=== PATIENT | male | born 1970 | race Caucasian/White ===

== ENCOUNTER 2016-05-25 11:24 | Inpatient (IN) ==
[2016-05-25] MEDS ORDERED: DIPH,PERTUSS(ACELL),TET VAC/PF 0.5 ML SYRINGE IM ONE (12:33)
--- NOTE | 2016-05-25 13:24 | Emergency Department Note ---
Wound/Laceration HPI - General Chief Complaint: Wound/Laceration Stated Complaint: Right middle finger swelling and reddness. Time Seen by Provider: 05/25/16 12:16 Source: patient Mode of arrival: ambulatory Limitations: no limitations - History of Present Illness HPI Narrative: States about a week ago he was working on an alternator and it was spinning and running and his finger hit it, causing an abrasion to right middle finger over the PIP, dorsal surface. Woman who is with him states she has been trying to get him to come in all week but it is getting worse it's more swollen and now is extremely limited range of motion to the affected finger. States it doesn't hurt and is fairly numb feeling except if he bumps it on anything or slightly touches it the wrong way states pain is severe and sends him through the roof. Denies fever or chills. States swelling to started going up into his hand and it has been red and hot to touch last 48 hours. No home treatments. He thinks his last tetanus was 7 years ago but he is unsure. States he last ate at [employer] about 5 minutes before coming into the room here. States he has not eaten otherwise since last night. Patient is right handed - Related Data Home Medications Medication Instructions Recorded Confirmed No Known Home Meds [No Known Home 05/25/16 05/25/16 Meds] Allergies Allergy/AdvReac Type Severity Reaction Status Date / Time No Known Drug Allergies Allergy Unverified 01/15/16 01:30 Review of Systems All systems ED: reviewed and negative except as stated. Past Medical History - Past Medical History Medical history: Reports: no medical history Surgical history ED: Reports: no surgical history - Social History smoking status: Unknown if ever smoked Alcohol use: Reports: Unknown (Denies but does smell of alcohol) Drug use: Reports: unknown Physical Exam - General Limitations: no limitations General appearance: alert, in no apparent distress - Head Head exam: atraumatic, normocephalic, normal inspection - Eye Eye exam: Present: normal appearance. Absent: conjunctival injection - ENT ENT exam: mucous membranes moist - Chest Chest inspection: Present: normal inspection, symmetric chest wall rise - Respiratory Respiratory exam: Present: normal lung sounds bilaterally. Absent: respiratory distress, wheezes, accessory muscle use - Cardiovascular Cardiovascular exam: Present: regular rate, normal heart sounds - Extremities Exam Extremities exam: Present: normal capillary refill, joint swelling (Right middle finger with diffuse severe edema throughout and extremely tender to touch. Warm and hot to touch. No drainage. Swelling extends from the middle finger about 1.5 inches up into the hand which is also reddened and swollen. Greatly decreased range of motion to the right third PIP joint) - Neurological Exam Neurological exam: Present: alert, oriented X3, normal gait - Psychiatric Psychiatric exam: Present: normal affect, normal mood - Skin Skin exam: Present: warm, dry, intact, erythema (Please see extremity exam) Course Vital Signs Temperature 98.3 F 05/25/16 11:25 Pulse Rate 78 05/25/16 11:25 Respiratory Rate 18 05/25/16 11:25 Pulse Oximetry (%) 99 05/25/16 11:25 Temperature 98.3 F 05/25/16 11:25 Pulse Rate 91 H 05/25/16 13:05 Respiratory Rate 18 05/25/16 13:05 Blood Pressure 160/109 05/25/16 13:05 Pulse Oximetry (%) 98 05/25/16 13:05 Wound/Laceration - [facility] Narrative Medical decision making narrative: Dr. Limon the orthopedic surgeon specializing in hands was called. Dr. Limon will be in to see the patient will assume care. Disposition Clinical Impression: Septic joint of right hand Disposition: Home, Self-Care Condition: Fair Referrals: Xiomy Boateng ARNP [Primary Care Provider] - Time of Disposition: 13:27
[2016-05-25 13:55] LABS: Basophils # (Auto) 0 K/mcL (0.0-0.3); Basophils % (Auto) 0.6 % (0.0-2.0); Eosinophils # (Auto) 0.1 K/mcL (0.0-0.7); Eosinophils % (Auto) 2.3 % (0.0-7.0); Granulocytes % (Auto) 52.3 % (38.0-78.0); Lymphocytes # (Auto) 1.9 K/mcL (1.5-4.8); Lymphocytes % (Auto) 36.1 % (15.5-49.0); Mean Cell Volume 99.5 fL (80.0-100.0); Mean Corpuscular HGB Conc 32.7 g/dL (31.0-36.0); Mean Corpuscular Hemoglobin 32.6 pg (26.0-34.0); Monocytes # (Auto) 0.5 K/mcL (0.1-0.9); Monocytes % (Auto) 8.7 % (1.0-9.0); Platelet Count 216 K/mcL (140-440); Red Cell Distribution Width 14.2 % (11.5-14.5)
[2016-05-25 14:04] LABS: Appearance,Urine CLEAR; Bacteria,Urine 0 /hpf (0); Bilirubin,Urine NEG (NEG); Color,Urine YELLOW; Glucose,Urine (UA) NEGATIVE (NEG); Leukocyte Esterase,Urine NEG /uL (NEG); Mucus,Urine FEW /hpf (0); Nitrate,Urine NEG (NEG); Protein,Urine 30 mg/dL (NEG); Specific Gravity,Urine 1.021 (1.000-1.035); Sperm,Urine PRESENT /hpf (ABSENT); Urine Blood NEG mg/dL (<0.03); Urine RBC 1 /hpf (0-1); Urine Squamous Epithelial Cell < 1 /hpf (0-4); Urine WBC 1 /hpf (0-4); Urobilinogen,Urine NEG (NEG)
[2016-05-25 14:16] LABS: ALT/SGPT 90 U/l (0-40); Albumin 4.6 gm/dL (3.2-5.2); Albumin/Globulin Ratio 1.4 (1.0-2.3); Alkaline Phosphatase 94 U/L (39-117); Blood Urea Nitrogen 7 mg/dl (6-20)
--- NOTE | 2016-05-25 14:48 | XRay Report ---
HISTORY: Reason for Exam:pain, edema, dec rom, laceration last week FINDINGS: There is a great deal of soft tissue swelling over the PIP joint of the third finger. There is no fracture or evidence of bone injury. Mild arthritis is present at the PIP joint with small marginal spurs. There is no foreign body or gas in the soft tissues and there is no cortical erosion. IMPRESSION: Soft tissue injury but no evidence of bone injury Interpreted and Authenticated by: Reinaldo Duff 05/25/16
[2016-05-25] MEDS ORDERED: FAMOTIDINE/PF 20 MG/2 ML VIAL IV ONE (14:55)
[2016-05-25] MEDS ORDERED: METOCLOPRAMIDE 10 MG/2 ML VIAL IV ONE (14:56)
--- NOTE | 2016-05-25 15:26 | Consultation ---
DATE OF CONSULTATION: 05/25/2016 CHIEF COMPLAINT: Right middle finger pain, swelling, redness, loss of motion and function. HISTORY: The patient is a 46-year-old right hand dominant male who about a week ago sustained a laceration over the back of his right middle finger and middle joint. Initially it was not too problematic, but then over the last week ago it has become more painful and problematic with increasing swelling, redness, loss of motion and function, and is now with increasing pain and redness in the back of the hand up into the forearm. This is now becoming painful and problematic. He is also noticing a low grade fever. Right now the pain rates about 3/5 sitting quietly. Any attempted motion of that middle finger on the right increases the pain to 4-5/5. He denies any previous trauma to the finger in the most recent or distant past other than the laceration a week ago. He has no chills, but is having some fevers with increasing pain at the present time. He denies any problems with the thumb, index, ring or small fingers, but now with pain in the dorsum of the forearm. He denies any left upper extremity problems. PAST MEDICAL HISTORY: Significant for tobacco use. PAST SURGICAL HISTORY: The patient is status post debridement and irrigation of his right index finger many years ago with an associated revision amputation. ALLERGIES: The patient has no known drug allergies. MEDICATIONS: None. SOCIAL HISTORY: Presently the patient does use tobacco and alcohol. 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 REVIEW OF SYSTEMS: Presently, the patient denies any headaches, vision changes, nausea or vomiting. He does have some fevers, but no chills. No abnormal bruising or bleeding. No blood in the urine or blood in the stool. No chest pain, shortness of breath or wheezing. PHYSICAL EXAM: VITAL SIGNS: Pulse of 84 that is regular, respiratory rate 97, respiration 18, blood pressure 156/98, and a temperature of 98.2 degrees. HEENT: Normocephalic, atraumatic. Pupils are equal, round and reactive to light. Extraocular movements are intact. Oropharynx is clear with moist mucous membranes. NECK: Supple without any anterior or posterior cervical adenopathy. No submandibular or submental adenopathy. He demonstrates no tenderness over the paraspinous or midline. He has full range of motion at the thyroid to the midline. HEART: Regular rate and rhythm without murmurs, rubs, or gallops. LUNGS: Clear to auscultation. ABDOMEN: Soft, positive bowel sounds. No hepatosplenomegaly noted. No masses noted. Nontender to palpation. SKIN: His bilateral upper extremities, except for his right middle finger, demonstrate no evidence of skin breakdown, macerations, lacerations, ulcers, or lesions. No abnormal bruising or ecchymotic regions. He demonstrates a middle finger on the right with a 1 cm laceration transversely over the proximal interphalangeal joint with some crusting. No purulence is noted. There is some erythema and induration noted. There is also some erythema and induration extending to the dorsum of the hand with some lymphangitis extending to the dorsum of the forearm. EXTREMITIES: His right upper extremity demonstrates a shoulder and elbow without any deformities. He did demonstrate some mild tenderness in the axilla, but no adenopathy noted. He does demonstrate some tenderness over the epitrochlear region of the elbow, but elbow flexion was from 0 to 145 degrees. He has no instability with varus or valgus stressing at 0 or 30 degrees of flexion. He has a negative Tinel's at the cubital tunnel. He has a forearm with full pronation and supination. He has some tenderness over the dorsum of the wrist with some lymphangitis with wrist flexion to 75 degrees and extension to 70 degrees. He has ulnar deviation to 35 degrees and radial deviation to 25 degrees. He is not able to make a full composite fist with a middle finger with erythema, induration and edema. Also some erythema and some induration over the dorsum of the hand. He has some significant tenderness over the proximal interphalangeal joint with active flexion and extension of the metacarpophalangeal joint, the proximal interphalangeal joint, and distal interphalangeal joint, but he is able to bring the fingertip to the palm. He has full motion of the thumb, index, ring and small fingers. He has a left upper extremity that shows hands without any deformities and nontender to palpation, full range of motion and neurovascularly distally. GAIT: Demonstrates a good heel to toe progression. No antalgic components noted. NEUROLOGIC: Cranial nerves II-XII are grossly intact with sensation intact to light touch in all four extremities. PLAIN RADIOGRAPHS: AP, lateral, and oblique views of the right middle finger interpreted by myself demonstrate no evidence of acute fractures, dislocations or bony lesions. There are no erosions noted. He has significant increasing edema in the soft tissue envelope, but with an intact soft tissue envelope. LABS: white cell count 5.3, a hemoglobin of 15.0 and a platelet count of 216,000. ASSESSMENT: The patient is about a week status post laceration over the dorsum of his right middle finger now with evidence of a dorsal abscess with a suppurative extensor tenosynovitis and a possible septic proximal interphalangeal joint, becoming more symptomatic and problematic and now with associated edema and some lymphangitis extending more proximally. RECOMMENDATIONS: 1. Due to the fact the patient now demonstrates his right middle finger with a dorsal abscess, suppurative extensor tenosynovitis, and possible septic interphalangeal joint with now extension more proximally, I would recommend operative intervention in an emergent fashion. 2. The patient will be scheduled for a debridement and irrigation of the right middle finger dorsal abscess and debridement and irrigation of the right middle finger suppurative extensor tenosynovitis and debridement and irrigation of the right middle finger septic proximal interphalangeal joint. 3. The patient was counseled on the risks and benefits of surgery to include, but not limited to infection, bleeding, nerve or vessel damage, pain, numbness, tingling, loss of function, loss of motion, stiffness, scarring, adhesions, contractures, loss of motion, loss of function, persistent infection, reoperation, and potential for amputation. The patient and family verbalized that they understood the proposed procedure with the associated risks and benefits and consented. 4. The patient will be admitted for at least overnight observation for IV antibiotics versus a possible inpatient admission for 72 hours of IV antibiotics. FRANCOISE:leigha Job ID: [id number] Doc ID: [id number] Don GRAY
[2016-05-25] MEDS ORDERED: PROPOFOL 200 MG/20 ML VIAL IV ONE (15:33)
[2016-05-25] MEDS ORDERED: LIDOCAINE HCL/PF 100 MG/5 ML SYRINGE IV ONE (15:33)
[2016-05-25] MEDS ORDERED: fentaNYL 100 MCG/2 ML VIAL IV ONE (15:33)
[2016-05-25] MEDS ORDERED: ONDANSETRON 4 MG/2 ML VIAL ONE (15:33)
[2016-05-25] MEDS ORDERED: SUCCINYLCHOLINE 20 MG/ML ML IV ONE (15:33)
[2016-05-25] MEDS ORDERED: MIDAZOLAM 5 MG/5 ML VIAL ONE (15:33)
[2016-05-25] MEDS ORDERED: HYDROmorphone 2 MG/ML SYRINGE IV PRN ×3 (16:03→18:00)
[2016-05-25] MEDS ORDERED: diphenhydrAMINE 50 MG/ML VIAL IV PRN (16:03)
[2016-05-25] MEDS ORDERED: IPRATROPIUM/ALBUTEROL 3 ML AMPUL.NEB NEB PRN (16:03)
[2016-05-25] MEDS ORDERED: NALOXONE HCL 0.4 MG/ML VIAL IV PRN ×2 (16:03→18:00)
[2016-05-25] MEDS ORDERED: BENZOCAINE/MENTHOL 1 LOZENGE PO PRN ×3 (16:03→18:00)
[2016-05-25] MEDS ORDERED: LACTATED RINGERS 250 ML IV PRN (16:03)
[2016-05-25] MEDS ORDERED: fentaNYL 100 MCG/2 ML VIAL IV PRN (16:03)
[2016-05-25] MEDS ORDERED: MEPERIDINE 25 MG/ML SYRINGE IV PRN (16:03)
[2016-05-25] MEDS ORDERED: FLUMAZENIL 0.1 MG/ML ML IV PRN (16:03)
[2016-05-25] MEDS ORDERED: LACTATED RINGERS 1,000 ML IV SCH (16:15)
[2016-05-25] MEDS ORDERED: HYDROCODONE/APAP 7.5/325MG TABLET PO PRN ×2 (16:39→18:00)
[2016-05-25] MEDS ORDERED: ONDANSETRON ODT 4 MG TABLET SL PRN ×2 (16:39→18:00)
--- NOTE | 2016-05-25 16:51 | Brief Operative Note ---
Date of procedure: 05/25/16 Pre-op diagnosis: R MF dorsal abcess, suppurative extensor tenosynovitis, septic PIP joint Post-op diagnosis: same Procedure: 1. Debridement and irrigation of right middle finger dorsal abcess 2. Debridement and irrigation of right middle finger suppurative extensor tendon sheath 3. Debridement and irrigation of right middle finger septic PIP joint Grafts/Implants: No Anesthesia: GETA Findings: See above Complications: none Surgeon: Don Limon Stitch Burnisher: Lulu Day Estimated blood loss (cc): 5 Tourniquet Time (Minutes): 32 Specimens Removed/Pathology: other (Aerobic/Anaerobic cultures of right middle finger extensor tendon and PIP joint) Condition: stable Disposition: PACU
--- NOTE | 2016-05-25 17:11 | Internal Med History&Physical ---
Medical - H&P: HPI Patient information: Note initiated : 05/25/16 at 5:07 pm Service Date, if different from initiated Date: [] Patient: Eliazar Plasencia 46 y/o M admitted on 05/25/16 for Right middle finger swelling and reddness.. History of present illness: Mr. Plasencia is a 46 year old male presented to the emergency room complaining of progressive worsening of swelling and pain of his right middle finger, dorsal surface. He apparently had been working on a car about one week ago and the alternator belts caused an abrasion. he was diagnosed with possible septic arthritis, and Dr. Lang of orthopedics saw him in the emergency room, and subsequently took him to the emergency room for open debridement. he is now being admitted for IV antibiotics regarding septic joint. His last tetanus shot was reported as approximately 7 years ago, so Tdap vaccine was given in the emergency room.. the patient also reports low-grade temperature. Pain is reported as 5 out of 5 with movement. He did report some pain in the dorsum of the forearm. he is now postop, and says he is feeling pretty well. He notes that other than his finger which started really bothering him several days ago he has not been feeling poorly. He denies fever or chills, but does note that it felt like his hand was swollen enough that he was having trouble using it. He does note that he's been having some stomach issues lately, and had been referred to see a doctor this week about some abdominal discomfort and nausea and just generalized soreness of the abdomen whenever he pushed on things are otherwise uses abdominal muscles.He admits that he drinks fairly heavily, and says that hecan drink quite a few beers or up to a fifth of whiskey per day. He has been drinking almost daily since he stopped using methamphetamines and cocaine about 15 years ago. He has been drinking quite a bit more heavily over the last several months, according to he and his girlfriend. He doesn't feel that he ever show signs of withdrawal but knows that sometimes his family worries about him, and has been thinking aboutcutting down. Otherwise, he deniesheadaches or dizziness, Or ear symptoms, sore throat or cough, swollen glands,chest pain or palpitations , shortness of breath or wheezing, vomiting or diarrhea or bright blood per rectum He says he will have occasional urinary frequency. He says his primary care doctor has johnny Dr. Sue, but it is not clear how often he sees her. Past medical history: Reported history of both heavy alcohol use. GERD previous amputation of his right index finger many years ago. current smoker, of one to 2 cigarettes per day having cut down about 1 year ago. allergies: No known drug allergies. Medications: None Social history: The patient admits to both tobacco and alcohol use, as above.. 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 he previously used methamphetamines and cocaine, but has been clean from those since 1990. Family history:he believes his mother has fibromyalgia, lupus, and a bad heart. His father is alive and well. His siblings and children are alive and well. Medical - H&P: Meds Home Medications Medication Instructions Recorded Confirmed Type No Known Home Meds [No Known Home 05/25/16 05/25/16 History Meds] Allergies Allergy/AdvReac Type Severity Reaction Status Date / Time No Known Drug Allergies Allergy Verified 05/25/16 17:25 Medical - H&P: Exam - Constitutional Vitals: Temp Pulse Resp BP Pulse Ox 98.5 F 98 H 18 152/102 94 05/25/16 17:00 05/25/16 17:00 05/25/16 17:00 05/25/16 17:00 05/25/16 17:00 Temperature in the emergency room was noted at 99.7. Exam: on exam, he is well-developed well-nourished man, in no acute distress. Head: Normocephalic, atraumatic. Ears: TMs and canals are clear. eyes: PERRLA, EOMI, anicteric. Pharynx:He has only fair condition, with multiple teeth missing. Pharynx is otherwise clear, and mucosa appears normal. Neck: Is supple, without obvious lymphadenopathy, JVD, thyromegaly, bruits. Cardiac exam: Shows regular rate and rhythm, with normal S1 and S2, without murmurs, rubs, gallops. lungs: Clear to auscultation, without rales, rhonchi, wheezes. abdomen: Is soft, without obvious tenderness or masses. Bowel sounds are active. There is no guarding or rebound. Extremities: His right forearm and hand are heavily bandaged as he is postop. Otherwise extremities show no cyanosis, clubbing, edema. Neurologic exam: Is grossly nonfocal. He is somewhat diaphoretic, but is not tremulous at this time. He is alert and oriented, and mood and affect appear normal. skin exam: He has numerous tiny scabs noted over both shins. Cause of this is not certain,but a steroid ointment might help get rid of the itching, which might given an opportunity to heal. He will also be on antibiotics while he is here. Medical - H&P: Reslt - Labs CBC & Chem 7: 05/25/16 13:21 05/25/16 13:21 Labs: CBC differential is normal. Sedimentation rate is elevated at 33 Liver function tests are elevated with AST of 1:15, and ALT of 90 with normal alkaline phosphatase.C-reactive protein is elevated at 3.4 Urinalysis shows 30 mg of protein, but is otherwise normal. x-ray shows a great deal soft tissue swelling over the PIP joint of the right third finger, without evidence of fracture or bone injury. There is also mild arthritis with small spurs noted. No foreign body was noted. EKG shows normal sinus rhythm at a rate of about 90, with normal axis and no obvious ischemia. Medical - H&P: A/P (1) Alcohol abuse Current visit: Yes Status: Acute (2) Tobacco abuse Current visit: Yes Status: Acute (3) Rash and nonspecific skin eruption Current visit: Yes Status: Acute (4) Septic joint of right hand Current visit: Yes Status: Acute (5) Dyspepsia Current visit: No Status: Acute #1. Infectious disease/orthopedics. - the patient is status post I&D he right middle finger abscess and suppurative extensor tenosynovitis with septic PIP joint. He will need IV antibiotics for at least [address] Lang has requested that medicine manage his antibiotics although he will continue to follow along. Intraoperative cultures are pending. In the meantime he will be covered with vancomycin and Rocephin. -i expect he will need at least 4 weeks total of antibiotics. -Blood cultures are also pending -Tdap vaccine was updated #2. history of heavy alcohol use. The patient is at high risk for withdrawal, and has been placed on the CIWA protocol. #3. History of tobacco abuse. This is fairly minimal, and should not require treatment. -he should avoid smoking altogether, but at least while healing his wound. #4.CODE STATUS: Full code. #5. DVT prophylaxis: Subcutaneous heparin. #6. Elevated blood pressure. He does not believe that he has a history of this .This may be related to the current stressful situation or due to alcohol withdrawal. We will continue to monitor this. #8. Abdominal discomfort, and likely GERD with or without gastritis due to chronic alcohol use. Cover with oral Pepcid. #9. He does have numerous tiny scabs noted over both shins, which he and his girlfriend report is due to chronic itching. We can try a topical steroid for now, that he should follow this up with his primary care physician. this visit took approximately 65 minutes, to review the patient's records and test results, interview and examine him, and write orders.
[2016-05-25] MEDS ORDERED: HYDROmorphone 2 MG/ML SYRINGE ONE (17:19)
[2016-05-25] MEDS ORDERED: VANCOMYCIN PER PHARMACY IV ONE (18:00)
[2016-05-25] MEDS ORDERED: cloNIDine HCL 0.1 MG TABLET PO PRN (18:00)
[2016-05-25] MEDS ORDERED: LORazepam 2 MG/ML VIAL IV PRN (18:00)
[2016-05-25] MEDS ORDERED: DOCUSATE SODIUM 100 MG CAPSULE PO PRN (18:00)
[2016-05-25] MEDS ORDERED: MAGNESIUM HYDROXIDE 30 ML ORAL.SUSP PO PRN (18:00)
[2016-05-25] MEDS ORDERED: ACETAMINOPHEN 325 MG TABLET PO PRN (18:00)
[2016-05-25] MEDS: HYDROcodone/APAP 5/325MG TABLET PO PRN ×2 (18:28→22:02)
[2016-05-25] MEDS ORDERED: cefTRIAXone 1 GM VIAL ONE (18:52)
[2016-05-25] MEDS ORDERED: VANCOMYCIN 500 MG VIAL ONE (18:53)
[2016-05-25] MEDS: cefTRIAXone 1 GM in DEXTROSE 5% IN WATER 50 ML IV SCH (19:27)
[2016-05-25] MEDS: VANCOMYCIN 1,500 MG in 0.9 % SODIUM CHLORIDE 500 ML IV SCH (19:28)
[2016-05-25] MEDS ORDERED: 0.9 % SODIUM CHLORIDE 10 ML SYRINGE IV SCH ×3 (22:00)
[2016-05-25] MEDS: HEPARIN 5,000 UNIT/ML VIAL SQ SCH (22:02)
[2016-05-25] MEDS: FAMOTIDINE 20 MG TABLET PO SCH (22:02)
[2016-05-25] MEDS: 0.9 % SODIUM CHLORIDE 10 ML SYRINGE IV SCH (22:03)
[2016-05-25] MEDS: TRIAMCINOLONE CREAM 0.1% 15G 1 DOSE TUBE TOPICAL SCH (23:08)
[2016-05-26] MEDS: HYDROcodone/APAP 5/325MG TABLET PO PRN ×4 (02:15→22:16)
[2016-05-26 06:05] LABS: Basophils # (Auto) 0 K/mcL (0.0-0.3); Basophils % (Auto) 0 % (0.0-2.0); Eosinophils # (Auto) 0 K/mcL (0.0-0.7); Eosinophils % (Auto) 0 % (0.0-7.0); Granulocytes % (Auto) 80.1 % (38.0-78.0); Lymphocytes # (Auto) 0.6 K/mcL (1.5-4.8); Lymphocytes % (Auto) 16.3 % (15.5-49.0); Mean Cell Volume 100.8 fL (80.0-100.0); Mean Corpuscular HGB Conc 32.8 g/dL (31.0-36.0); Mean Corpuscular Hemoglobin 33.1 pg (26.0-34.0); Monocytes # (Auto) 0.1 K/mcL (0.1-0.9); Monocytes % (Auto) 3.6 % (1.0-9.0); Platelet Count 194 K/mcL (140-440); RBC 4.29 M/mcL (4.50-5.90)
[2016-05-26 06:41] LABS: ALT/SGPT 66 U/l (0-40); Albumin 3.9 gm/dL (3.2-5.2); Albumin/Globulin Ratio 1.4 (1.0-2.3); Alkaline Phosphatase 72 U/L (39-117); Bilirubin,Direct < 0.2 mg/dL (0.0-0.3); Blood Urea Nitrogen 10 mg/dl (6-20); C-Reactive Protein 2.5 mg/dl (0.0-0.8); Gamma Glutamyl Transpeptidase 355 U/L (8-61); Magnesium 1.5 mg/dL (1.6-2.5); Phosphorous 2.9 mg/dL (2.7-4.5); Uric Acid 5.8 mg/dL (2.5-8.0)
[2016-05-26] MEDS: 0.9 % SODIUM CHLORIDE 10 ML SYRINGE IV SCH ×6 (08:30→22:31)
[2016-05-26] MEDS: cefTRIAXone 1 GM in DEXTROSE 5% IN WATER 50 ML IV SCH (08:35)
--- NOTE | 2016-05-26 08:36 | Operative Note ---
DATE OF OPERATION: 05/25/2016 PREOPERATIVE DIAGNOSES: 1. Right middle finger dorsal abscess. 2. Right middle finger suppurative extensor tenosynovitis. 3. Right middle finger septic proximal interphalangeal joint. POSTOPERATIVE DIAGNOSES: 1. Right middle finger dorsal abscess. 2. Right middle finger suppurative extensor tenosynovitis. 3. Right middle finger septic proximal interphalangeal joint. PROCEDURE: 1. Debridement and irrigation of the right middle finger dorsal abscess. 2. Debridement and irrigation of the right middle finger extensor tendon sheath. 3. Debridement and irrigation of the right middle finger proximal interphalangeal joint. SURGEON: Don Limon MD. CERTIFIED NURSE MIDWIFE: Lulu Day RN ANESTHESIA: General anesthesia with endotracheal tube. ESTIMATED BLOOD LOSS: 5 mL. DRAINS: Included 1/4-inch [place] drain placed deep to the extensor tendon sheath. COMPLICATIONS: None. FINAL SPONGE COUNT: Correct. SPECIMENS: Aerobic and anaerobic cultures of the right middle finger extensor tendon sheath and the proximal interphalangeal joint. TOTAL TOURNIQUET TIME: 32 minutes. INDICATION: The patient is a 46-year-old, [id number], white male who approximately a week ago sustained a laceration while working on transmission over the back of his right middle finger with subsequent development of pain, swelling, redness with loss of motion and function. His physical examination demonstrates about a 1 cm transverse laceration on the dorsal aspect of the right middle finger proximal interphalangeal joint with associated erythema, induration, limited range of motion with extension of edema and erythema into the dorsum of the hand with lymphangitis of the dorsum of the forearm. The plain radiographs do not demonstrate any evidence of fractures, dislocations or bony lesions. The patient and family verbalized that they understood the proposed procedure with the associated risks and benefits and consented. PROCEDURE: The patient was taken to the operating room suite and placed supine on the operating room table. General anesthesia was attained with endotracheal tube after adequate anesthesia was verified. The tourniquet was then placed on the proximal aspect of his right arm and the right upper extremity was then sterilely prepped and draped in the usual fashion. The middle finger was identified. The eschar was removed off the laceration with gross purulence down deep with evidence of extension into the proximal interphalangeal joint, at which time the dorsal right middle finger was marked extending the incision proximally and distally in a Z fashion. After this demonstrated to be in good position, the right upper extremity was exsanguinated and the tourniquet was inflated to 280 mmHg. The previously marked incision was then made sharply in a Z fashion extending proximally and distally over the middle phalanx and the proximal phalanx. Sharp dissection was taken down through the skin into the subcutaneous tissues. The subcutaneous tissues were bluntly divided. Full-thickness flaps were developed in a radial and ulnar direction exposing the entire extensor mechanism with significant purulence extending into the dorsum of the hand. Next, the proximal interphalangeal was identified. There was seen to be a laceration through the extensor mechanism with detachment of the central slip with purulence and granulation tissue within the proximal interphalangeal joint. The extensor tendon was incised in line with the incision exposing the entire proximal interphalangeal joint. With the use of blunt and sharp dissection, all necrotic and/or foreign material was removed. Cultures were taken at the extensor tendon sheath with aerobic and anaerobic cultures and in the proximal interphalangeal with aerobic and anaerobic cultures sent for pathologic evaluation. Next, after necrotic and foreign material was removed as well as purulence, copious irrigation was taken through the wound and the proximal interphalangeal joint with a liter of sterile saline solution. A repeat debridement was taken through the extensor tendon sheath, the dorsal abscess and the proximal interphalangeal joint. Loculations were then broken up to the dorsum of the hand and the dorsum of the middle phalanx to the level of the distal interphalangeal joint. Next, copious irrigation was taken to the dorsum of the hand and to the distal interphalangeal joint with another liter of sterile saline solution, repeat debridement, again a final liter of sterile saline solution placed through the extensor tendon mechanism and into the proximal interphalangeal joint. After this was completed, there was seen to be complete removal of all necrotic and/or foreign material within the extensor tendon sheath, dorsum of the hand and the proximal interphalangeal joint. After this was completed, the wound edges were then trimmed back about 1.5 mm and the skin was then closed with 4-0 nylon interrupted sutures with a Irasema drain placed deep to the extensor tendon. The tourniquet was released. The finger was seen to pink up very nicely with good drainage at the drain site. A bulky hand dressing was applied. A volar splint was applied with the wrist in slight extension and the metacarpals in a flexed posture. The patient was awakened and transferred to the [facility] and to the recovery room in stable condition. The patient tolerated the procedure well. Estimated blood loss was 5 mL Drains included 1/4-inch [place] drain placed deep to the extensor mechanism. Complications were none. Final sponge count was correct. Specimens included aerobic and anaerobic cultures at the level of the extensor tendon and the proximal interphalangeal joint. There was a total tourniquet time of 32 minutes. FRANCOISE:owen Job ID: [id number] Doc ID: [id number] Don Limon MD
[2016-05-26] MEDS: THIAMINE 100 MG TABLET PO SCH (08:40)
[2016-05-26] MEDS: MULTIVIT,THER IRON,CA,FA & MIN 1 TABLET PO SCH (08:40)
[2016-05-26] MEDS: HEPARIN 5,000 UNIT/ML VIAL SQ SCH ×2 (08:40→22:16)
[2016-05-26] MEDS: FAMOTIDINE 20 MG TABLET PO SCH ×2 (08:41→22:16)
[2016-05-26] MEDS: TRIAMCINOLONE CREAM 0.1% 15G 1 DOSE TUBE TOPICAL SCH ×2 (08:41→22:20)
[2016-05-26] MEDS: FOLIC ACID 1 MG TABLET PO SCH (08:45)
[2016-05-26] MEDS: VANCOMYCIN 1,500 MG in 0.9 % SODIUM CHLORIDE 500 ML IV SCH ×2 (09:34→22:15)
[2016-05-26] MEDS ORDERED: LORazepam 2 MG/ML VIAL IV ONE (10:02)
--- NOTE | 2016-05-26 13:30 | Internal Med Progress Note ---
Medical - PN: Subj Patient information: Note initiated : 05/26/16 at 1:30 pm Service Date, if different from initiated Date: [] Patient: Eliazar Plasencia 46 y/o M admitted on 05/25/16 for Rt Middle Finger Swelling, Reddness/Septic Joint. Chief Complaint: [] Interval history: May 25, 2016:History of present illness: Mr. Plasencia is a 46 year old male presented to the emergency room complaining of progressive worsening of swelling and pain of his right middle finger, dorsal surface. He apparently had been working on a car about one week ago and the alternator belts caused an abrasion. he was diagnosed with possible septic arthritis, and Dr. Lang of orthopedics saw him in the emergency room, and subsequently took him to the emergency room for open debridement. he is now being admitted for IV antibiotics regarding septic joint. His last tetanus shot was reported as approximately 7 years ago, so Tdap vaccine was given in the emergency room.. May 26, 2016: Today, the patient says he is feeling pretty well. He did have some agitation last night, but this was settled down nicely by Ativan. Otherwise, he states he's having a little bit more discomfort in his right hand today, but really not much. He denies any tremors or other signs of alcohol withdrawal today. He is not having fever or chills, chest pain or shortness of breath, abdominal pain, nausea or vomiting.he says the triamcinolone cream does seem to be helping with the itching of his shins at night. - Constitutional Vitals: Vital Signs Temp Pulse Resp BP Pulse Ox 97.7 F 73 16 148/98 95 05/26/16 06:44 05/26/16 06:44 05/26/16 06:44 05/26/16 06:44 05/26/16 07:00 Period Temp Pulse Resp BP Sys/[place] Pulse Ox Last 24 Hr 97.7 F-98.5 F 72-98 14-18 139-169/87-105 90-96 Intake and Output 05/25/16 05/26/16 05/26/16 21:59 05:59 13:59 Intake Total 1800 / 1800 500 / 500 290 / 290 Output Total 455 / 455 150 / 150 Balance 1345 / 1345 500 / 500 140 / 140 Weight 212 lb Intake & Output: Intake & Output 05/25/16 05/26/16 05/26/16 21:59 05:59 13:59 Intake Total 1800 / 1800 500 / 500 290 / 290 Output Total 455 / 455 150 / 150 Balance 1345 / 1345 500 / 500 140 / 140 Weight 212 lb Intake: IV 50 / 50 Dextrose 5% in Water 50 50 / 50 ml @ 100 mls/hr IV Q24H KULWINDER with Rocephin 1 gm Rx #:[id number] Oral 600 / 600 500 / 500 240 / 240 GI Tube Flush 1200 / 1200 Output: Void Amount 450 / 450 150 / 150 Estimated Blood Loss 5 / 5 Other: Meal Dinner Breakfast Percent of Meal Consumed 100% 75% Feeding Ability Independent Independent # Voids 2 1 Exam: he is in no acute distress. Neck is supple without obvious lymphadenopathy. Cardiac exam shows regular rate and rhythm. Lungs are clear to auscultation. abdomen is soft and nontender. extremities: Right arm is bandaged There is no sign of discharge. Lower extremity show no edema. He continues to have tiny scabs over his shins, and notes that he often wakes himself up during the night having scratched his shins. Medical - PN: Obj Da - Labs CBC & Chem 7: 05/26/16 04:30 05/26/16 04:30 Labs: Abnormal Lab Results 05/26/16 05/26/16 04:30 04:30 WBC 3.8 L RBC 4.29 L MCV 100.8 H Gran % 80.1 H Lymph # 0.6 L Glucose 191 H Calcium 8.5 L Magnesium 1.5 L GGT 355 H AST 66 H ALT 66 H C-Reactive Protein 2.5 H wound cultures from May 25 are growing staph aureus, with sensitivities pending. Meds: Medications Acetaminophen (Tylenol) 650 mg PO Q6HP PRN PRN Reason: PAIN/FEVER > 101 Last Admin: 05/26/16 06:45 Dose: 650 mg Acetaminophen/Hydrocodone Bitart ([place] 5/325mg) 1 tab PO Q4HP PRN PRN Reason: Pain Last Admin: 05/26/16 10:17 Dose: 1 tab Clonidine HCl (Catapres) 0.1 mg PO Q4HP PRN PRN Reason: Alcohol Withdrawal Docusate Sodium (Colace) 100 mg PO BID PRN PRN Reason: Constipation Famotidine (Pepcid) 20 mg PO BID [facility] Last Admin: 05/26/16 08:41 Dose: 20 mg Folic Acid (Folic Acid) 1 mg PO DAILY [facility] Last Admin: 05/26/16 08:45 Dose: 1 mg Heparin Sodium (Porcine) (Heparin) 5,000 unit SQ Q12 [facility] Last Admin: 05/26/16 08:40 Dose: 5,000 unit Heparin Sodium (Porcine) (Heparin Flush) 2 ml IV Q12 [facility] Hydromorphone HCl (Dilaudid) 0 mg IV Q2HP PRN PRN Reason: Pain Ceftriaxone Sodium 1 gm/ (Dextrose) 50 mls @ 100 mls/hr IV Q24H [facility] Last Infusion: 05/26/16 09:33 Dose: Infused Vancomycin HCl 1,500 mg/ (Sodium Chloride) 500 mls @ 333.3 mls/hr IV Q12H [facility] Last Admin: 05/26/16 09:34 Dose: 250 mls/hr Iron Carb/Multivit/Tax Attorney/Folic Acid (Multivitamin W/Minerals) 1 tab PO DAILY [facility] Last Admin: 05/26/16 08:40 Dose: 1 tab Lorazepam (Ativan) 1 mg IV Q4HP PRN; Protocol PRN Reason: Alcohol Withdrawal Magnesium Hydroxide (Milk Of Magnesia) 30 ml PO DAILYP PRN PRN Reason: Constipation Naloxone HCl (Narcan) 0.1 mg IV Q2MIN PRN PRN Reason: Opiate Reversal Ondansetron HCl (Zofran) 4 mg SL Q4HP PRN PRN Reason: Nausea And Vomiting Sodium Chloride (Saline Flush) 10 ml IV Q8 [facility] Last Admin: 05/26/16 09:36 Dose: 10 ml Sodium Chloride (Saline Flush) 10 ml IV Q8 [facility] Thiamine HCl (Vitamin B1) 100 mg PO QDAY [facility] Last Admin: 05/26/16 08:40 Dose: 100 mg Throat Lozenges (Cepacol) 1 lozenge PO PRN PRN PRN Reason: Sore Throat Triamcinolone Acetonide (Kenalog Cream 0.1%) 1 dose TOPICAL BID [facility] Last Admin: 05/26/16 08:41 Dose: 1 dose Medical - PN: A/P - Time Spent With Patient Total time spent is greater than 50% in coordination of care (as documented) at patient's floor/unit and/or counseling patient: (1) Alcohol abuse Status: Acute Current Visit: Yes (2) Tobacco abuse Status: Acute Current Visit: Yes (3) Rash and nonspecific skin eruption Status: Acute Current Visit: Yes (4) Septic joint of right hand Problem details: A: S/P I&D right septic middle finger PIP joint and extensor tendon, doing well P: 1. Continue IV antibiotics as per Hospitalist 2. Up as tolerated 3. Dressing change and drain D/C 05/28/15 Status: Acute Current Visit: Yes (5) Dyspepsia Status: Acute Current Visit: No - Narrative A/P Narrative: #1. Infectious disease/orthopedics. - the patient is status post I&D he right middle finger abscess and suppurative extensor tenosynovitis with septic PIP joint. He will need IV antibiotics for at least [address] Lang has requested that medicine manage his antibiotics although he will continue to follow along. -sensitivities on the staph aureus that is growing are still pending. In the meantime he will be covered with vancomycin and Rocephin. -i expect he will need at least 4 weeks total of antibiotics. -Blood cultures are also pending -Tdap vaccine was updated #2. history of heavy alcohol use. The patient is at high risk for withdrawal, and has been placed on the CIWA protocol. e has required a couple of doses of lorazepam, but otherwise appears to be doing well. #3. History of tobacco abuse. This is fairly minimal, and should not require treatment. -he should avoid smoking altogether, but at least while healing his wound. #4.CODE STATUS: Full code. #5. DVT prophylaxis: Subcutaneous heparin. #6. Elevated blood pressure. He does not believe that he has a history of this .This may be related to the current stressful situation or due to alcohol withdrawal. We will continue to monitor this. #8.gI. - Abdominal discomfort, and likely GERD with or without gastritis due to chronic alcohol use. Cover with oral Pepcid. -LFTs were also elevated on admission, likely due to alcoholic hepatitis These seem to be improving today. #9. He does have numerous tiny scabs noted over both shins, which he and his girlfriend report is due to chronic itching. We can try a topical steroid for now, that he should follow this up with his primary care physician. #10. Hematologic. -MCV is elevated, likely due to the effect of alcohol on his bone marrow. continue with supplementation of B vitamins. #11. Endocrine. -Glucose is elevated today. Continue to monitor. approximately 30 minutes was spent today, reviewing patient's chest results, interviewing and examining him, and writing orders. Medical - PN: Qual - VTE Deep Vein Thrombosis/Pulmonary Embolism Present on Admission: No
--- NOTE | 2016-05-26 17:47 | Orthopedic Progress Note ---
Subjective Patient information: Note initiated : 05/26/16 at 5:45 pm Service Date, if different from initiated Date: [] Patient: Eliazar Plasencia 46 y/o M admitted on 05/25/16 for Rt Middle Finger Swelling, Reddness/Septic Joint. Chief Complaint: [] Principal diagnosis: Septic right middle finger Interval history: Patient doing well, no fevers or chills, taking po well. Good pain control Objective Vital signs: Vital Signs Temp Pulse Resp BP Pulse Ox 05/26/16 16:00 98.2 F 98 H 163/86 92 05/26/16 12:00 97.7 F 75 16 142/87 95 05/26/16 07:00 95 05/26/16 06:44 97.7 F 73 16 148/98 95 05/26/16 04:00 98.3 F 72 16 150/93 96 05/25/16 23:30 98.3 F 88 14 139/90 95 05/25/16 19:50 98.4 F 88 14 154/87 94 05/25/16 18:45 91 H 151/90 93 05/25/16 18:15 92 H 160/99 90 Intake and Output 05/26/16 05/26/16 05/26/16 05:59 13:59 21:59 Intake Total 500 / 500 1250 / 1250 Output Total 150 / 150 Balance 500 / 500 1100 / 1100 Intake: IV 550 / 550 Sodium Chloride 0.9% 500 500 / 500 ml @ 333.3 mls/hr IV Q12H KULWINDER with Vancomycin 1, 500 mg Rx#:[id number] Dextrose 5% in Water 50 50 / 50 ml @ 100 mls/hr IV Q24H KULWINDER with Rocephin 1 gm Rx #:[id number] Oral 500 / 500 700 / 700 Output: Void Amount 150 / 150 Other: Meal Lunch Percent of Meal Consumed 100% Feeding Ability Independent # Voids 2 1 Intake & Output: Intake & Output 05/26/16 05/26/16 05/26/16 05:59 13:59 21:59 Intake Total 500 / 500 1250 / 1250 Output Total 150 / 150 Balance 500 / 500 1100 / 1100 Intake: IV 550 / 550 Sodium Chloride 0.9% 500 500 / 500 ml @ 333.3 mls/hr IV Q12H KULWINDER with Vancomycin 1, 500 mg Rx#:[id number] Dextrose 5% in Water 50 50 / 50 ml @ 100 mls/hr IV Q24H KULWINDER with Rocephin 1 gm Rx #:[id number] Oral 500 / 500 700 / 700 Output: Void Amount 150 / 150 Other: Meal Lunch Percent of Meal Consumed 100% Feeding Ability Independent # Voids 2 1 Dressing: Yes clean, Yes dry, Yes intact, Yes splint in place Weight bearing status: full Neurological exam IM: Yes alert, Yes oriented X3, Yes neurovascular intact Extremities exam IM: Yes neurovascular intact - Labs CBC & BMP: 05/26/16 04:30 05/26/16 04:30 Labs: 05/26/16 04:30 Hgb 14.2 Hct 43.3 Assessment and Plan (1) Septic joint of right hand Status: Acute Priority: High Comment: A: S/P I&D right septic middle finger PIP joint and extensor tendon, doing well P: 1. Continue IV antibiotics as per Hospitalist 2. Up as tolerated 3. Dressing change and drain D/C 05/28/15 Qualifiers: Septic arthritis organism: staphylococcal Qualified Code(s): M00.041 - Staphylococcal arthritis, right hand
[2016-05-27 05:26] LABS: Basophils # (Auto) 0 K/mcL (0.0-0.3); Basophils % (Auto) 0.4 % (0.0-2.0); Eosinophils # (Auto) 0 K/mcL (0.0-0.7); Eosinophils % (Auto) 0.2 % (0.0-7.0); Granulocytes % (Auto) 67.5 % (38.0-78.0); Lymphocytes # (Auto) 1.7 K/mcL (1.5-4.8); Lymphocytes % (Auto) 25.9 % (15.5-49.0); Mean Cell Volume 100.6 fL (80.0-100.0); Mean Corpuscular HGB Conc 32.7 g/dL (31.0-36.0); Mean Corpuscular Hemoglobin 32.9 pg (26.0-34.0); Monocytes # (Auto) 0.4 K/mcL (0.1-0.9); Platelet Count 193 K/mcL (140-440); RBC 4.07 M/mcL (4.50-5.90); Red Cell Distribution Width 14.3 % (11.5-14.5)
[2016-05-27 05:44] LABS: ALT/SGPT 51 U/l (0-40); Albumin/Globulin Ratio 1.5 (1.0-2.3); Alkaline Phosphatase 64 U/L (39-117); Bilirubin,Direct < 0.2 mg/dL (0.0-0.3); Blood Urea Nitrogen 13 mg/dl (6-20); C-Reactive Protein 1.2 mg/dl (0.0-0.8); Gamma Glutamyl Transpeptidase 310 U/L (8-61); Magnesium 1.8 mg/dL (1.6-2.5); Phosphorous 2.6 mg/dL (2.7-4.5); Uric Acid 5.1 mg/dL (2.5-8.0)
[2016-05-27] MEDS: HYDROcodone/APAP 5/325MG TABLET PO PRN ×2 (06:17→19:03)
[2016-05-27] MEDS: 0.9 % SODIUM CHLORIDE 10 ML SYRINGE IV SCH ×6 (06:18→21:36)
[2016-05-27] MEDS: cefTRIAXone 1 GM in DEXTROSE 5% IN WATER 50 ML IV SCH (08:44)
[2016-05-27] MEDS: THIAMINE 100 MG TABLET PO SCH (09:01)
[2016-05-27] MEDS: FAMOTIDINE 20 MG TABLET PO SCH ×2 (09:01→21:35)
[2016-05-27] MEDS: MULTIVIT,THER IRON,CA,FA & MIN 1 TABLET PO SCH (09:01)
[2016-05-27] MEDS: FOLIC ACID 1 MG TABLET PO SCH (09:01)
[2016-05-27] MEDS: HEPARIN 5,000 UNIT/ML VIAL SQ SCH ×2 (09:01→21:36)
[2016-05-27] MEDS: VANCOMYCIN 1,500 MG in 0.9 % SODIUM CHLORIDE 500 ML IV SCH ×2 (10:16→21:35)
[2016-05-27] MEDS: TRIAMCINOLONE CREAM 0.1% 15G 1 DOSE TUBE TOPICAL SCH ×2 (11:50→21:35)
--- NOTE | 2016-05-27 12:00 | Internal Med Progress Note ---
Medical - PN: Subj Patient information: Note initiated : 05/27/16 at 12:00 pm Service Date, if different from initiated Date: [] Patient: Eliazar Plasencia 46 y/o M admitted on 05/25/16 for Rt Middle Finger Swelling, Reddness/Septic Joint. Chief Complaint: [] Interval history: May 25, 2016:History of present illness: Mr. Plasencia is a 46 year old male presented to the emergency room complaining of progressive worsening of swelling and pain of his right middle finger, dorsal surface. He apparently had been working on a car about one week ago and the alternator belts caused an abrasion. he was diagnosed with possible septic arthritis, and Dr. Lang of orthopedics saw him in the emergency room, and subsequently took him to the emergency room for open debridement. he is now being admitted for IV antibiotics regarding septic joint. His last tetanus shot was reported as approximately 7 years ago, so Tdap vaccine was given in the emergency room.. May 26, 2016: Today, the patient says he is feeling pretty well. He did have some agitation last night, but this was settled down nicely by Ativan. Otherwise, he states he's having a little bit more discomfort in his right hand today, but really not much. He denies any tremors or other signs of alcohol withdrawal today. He is not having fever or chills, chest pain or shortness of breath, abdominal pain, nausea or vomiting.he says the triamcinolone cream does seem to be helping with the itching of his shins at night. May 27, 2016: the patient has no particular complaints today, other than that he is feeling somewhat sleepy. He still uses Ativan occasionally for increases in anxiety but has otherwise not had significant withdrawal symptoms. He denies fever or chills, or excessive pain in his right hand. He denies chest pain or shortness of breath GI or symptoms. - Constitutional Vitals: Vital Signs Temp Pulse Resp BP Pulse Ox 98.8 F 76 18 137/88 93 05/27/16 07:44 05/27/16 07:44 05/27/16 07:44 05/27/16 07:44 05/27/16 07:44 Period Temp Pulse Resp BP Sys/[place] Pulse Ox Last 24 Hr 97.5 F-98.8 F 76-98 18-18 137-175/86-95 92-97 Intake and Output 05/26/16 05/27/16 05/27/16 21:59 05:59 13:59 Intake Total 240 / 240 850 / 850 Balance 240 / 240 850 / 850 Weight 212 lb Intake & Output: Intake & Output 05/26/16 05/27/16 05/27/16 21:59 05:59 13:59 Intake Total 240 / 240 850 / 850 Balance 240 / 240 850 / 850 Weight 212 lb Intake: IV 500 / 500 Sodium Chloride 0.9% 500 500 / 500 ml @ 333.3 mls/hr IV Q12H KULWINDER with Vancomycin 1, 500 mg Rx#:[id number] Oral 240 / 240 350 / 350 Other: Meal Dinner Percent of Meal Consumed 100% # Voids 2 Exam: he is awake and alert, and in no acute distress. Cardiac exam shows regular rate and rhythm. Lungs are clear to auscultation. Abdomen is soft and nontender. extremities:Right hand and forearm are bandaged. Fingers show good vascular refill. Lower extremities show no edema. The rash on his terrell seems to be improving. Medical - PN: Obj Da - Labs CBC & Chem 7: 05/27/16 03:59 05/27/16 03:59 Labs: Abnormal Lab Results 05/27/16 05/27/16 05/26/16 03:59 03:59 04:30 WBC RBC 4.07 L Hgb 13.4 L Hct 40.9 L MCV 100.6 H Gran % Lymph # Glucose 191 H Calcium 8.5 L Phosphorus 2.6 L Magnesium 1.5 L GGT 310 H 355 H AST 44 H 66 H ALT 51 H 66 H C-Reactive Protein 1.2 H 2.5 H Triglycerides 169 H 05/26/16 04:30 WBC 3.8 L RBC 4.29 L Hgb Hct MCV 100.8 H Gran % 80.1 H Lymph # 0.6 L Glucose Calcium Phosphorus Magnesium GGT AST ALT C-Reactive Protein Triglycerides wound cultureis growing staph aureus and gram-positive cocci. Staph aureus is pansensitive.gram-positive cocci organism ID is still pending. Meds: Medications Acetaminophen (Tylenol) 650 mg PO Q6HP PRN PRN Reason: PAIN/FEVER > 101 Last Admin: 05/26/16 06:45 Dose: 650 mg Acetaminophen/Hydrocodone Bitart ([place] 5/325mg) 1 tab PO Q4HP PRN PRN Reason: Pain Last Admin: 05/27/16 06:17 Dose: 1 tab Clonidine HCl (Catapres) 0.1 mg PO Q4HP PRN PRN Reason: Alcohol Withdrawal Docusate Sodium (Colace) 100 mg PO BID PRN PRN Reason: Constipation Famotidine (Pepcid) 20 mg PO BID [facility] Last Admin: 05/27/16 09:01 Dose: 20 mg Folic Acid (Folic Acid) 1 mg PO DAILY [facility] Last Admin: 05/27/16 09:01 Dose: 1 mg Heparin Sodium (Porcine) (Heparin) 5,000 unit SQ Q12 [facility] Last Admin: 05/27/16 09:01 Dose: 5,000 unit Heparin Sodium (Porcine) (Heparin Flush) 2 ml IV Q12 [facility] Last Admin: 05/27/16 11:51 Dose: 2 ml Hydromorphone HCl (Dilaudid) 0 mg IV Q2HP PRN PRN Reason: Pain Ceftriaxone Sodium 1 gm/ (Dextrose) 50 mls @ 100 mls/hr IV Q24H [facility] Last Admin: 05/27/16 08:44 Dose: 100 mls/hr Vancomycin HCl 1,500 mg/ (Sodium Chloride) 500 mls @ 333.3 mls/hr IV Q12H [facility] Last Admin: 05/27/16 10:16 Dose: 333 mls/hr Iron Carb/Multivit/[place]/Folic Acid (Multivitamin W/Minerals) 1 tab PO DAILY [facility] Last Admin: 05/27/16 09:01 Dose: 1 tab Lorazepam (Ativan) 1 mg IV Q4HP PRN; Protocol PRN Reason: Alcohol Withdrawal Last Admin: 05/27/16 06:17 Dose: 1 mg Magnesium Hydroxide (Milk Of Magnesia) 30 ml PO DAILYP PRN PRN Reason: Constipation Naloxone HCl (Narcan) 0.1 mg IV Q2MIN PRN PRN Reason: Opiate Reversal Ondansetron HCl (Zofran) 4 mg SL Q4HP PRN PRN Reason: Nausea And Vomiting Sodium Chloride (Saline Flush) 10 ml IV Q8 [facility] Last Admin: 05/27/16 06:18 Dose: 10 ml Sodium Chloride (Saline Flush) 10 ml IV Q8 [facility] Last Admin: 05/27/16 06:18 Dose: 10 ml Thiamine HCl (Vitamin B1) 100 mg PO QDAY [facility] Last Admin: 05/27/16 09:01 Dose: 100 mg Throat Lozenges (Cepacol) 1 lozenge PO PRN PRN PRN Reason: Sore Throat Triamcinolone Acetonide (Kenalog Cream 0.1%) 1 dose TOPICAL BID [facility] Last Admin: 05/27/16 11:50 Dose: 1 dose Medical - PN: A/P - Time Spent With Patient Total time spent is greater than 50% in coordination of care (as documented) at patient's floor/unit and/or counseling patient: (1) Alcohol abuse Status: Acute Current Visit: Yes (2) Tobacco abuse Status: Acute Current Visit: Yes (3) Rash and nonspecific skin eruption Status: Acute Current Visit: Yes (4) Septic joint of right hand Problem details: A: S/P I&D right septic middle finger PIP joint and extensor tendon, doing well P: 1. Continue IV antibiotics as per Hospitalist 2. Up as tolerated 3. Dressing change and drain D/C 05/28/16 4. D/C planning for 05/28/16 Status: Acute Current Visit: Yes (5) Dyspepsia Status: Acute Current Visit: No - Narrative A/P Narrative: #1. Infectious disease/orthopedics. - the patient is status post I&D he right middle finger abscess and suppurative extensor tenosynovitis with septic PIP joint. He will need IV antibiotics for at least [address] Lang has requested that medicine manage his antibiotics although he will continue to follow along. -sensitivities on the staph aureus showed as a pansensitive organism. There is a second gram-positive organism with ID still pending. -continue coverage with vancomycin and Rocephin. -i expect he will need at least 4 weeks total of antibiotics. -Blood cultures are also pending -Tdap vaccine was updated #2. history of heavy alcohol use. The patient is at high risk for withdrawal, and has been placed on the CIWA protocol. e has required a couple of doses of lorazepam, but otherwise appears to be doing well. #3. History of tobacco abuse. This is fairly minimal, and should not require treatment. -he should avoid smoking altogether, but at least while healing his wound. #4.CODE STATUS: Full code. #5. DVT prophylaxis: Subcutaneous heparin. #6. Elevated blood pressure. He does not believe that he has a history of this .This may be related to the current stressful situation or due to alcohol withdrawal. We will continue to monitor this. #8.gI. - Abdominal discomfort, and likely GERD with or without gastritis due to chronic alcohol use. Cover with oral Pepcid. -LFTs were also elevated on admission, likely due to alcoholic hepatitis these are improving. #9. He does have numerous tiny scabs noted over both shins, which he and his girlfriend report is due to chronic itching.this is improving with topical steroids. #10. Hematologic. -MCV is elevated, likely due to the effect of alcohol on his bone marrow. continue with supplementation of B vitamins. #11. Endocrine. -Glucose was elevated, but is improved today. approximately 25 minutes was spent today, reviewing patient's chest results, interviewing and examining him, and writing orders. Medical - PN: Qual - VTE Deep Vein Thrombosis/Pulmonary Embolism Present on Admission: No
--- NOTE | 2016-05-27 17:47 | Orthopedic Progress Note ---
Subjective Patient information: Note initiated : 05/27/16 at 5:44 pm Service Date, if different from initiated Date: [] Patient: Eliazar Plasencia 46 y/o M admitted on 05/25/16 for Rt Middle Finger Swelling, Reddness/Septic Joint. Chief Complaint: [] Principal diagnosis: Septic right middle finger Interval history: Patient doing well, no changes. Improved pain control Objective Vital signs: Vital Signs Temp Pulse Resp BP Pulse Ox 05/27/16 16:00 98.7 F 90 18 158/102 95 05/27/16 15:35 97 05/27/16 12:00 98.8 F 75 18 135/82 93 05/27/16 07:44 98.8 F 76 18 137/88 93 05/27/16 04:36 157/91 05/27/16 04:00 98.2 F 88 18 175/95 97 05/26/16 23:41 97.9 F 83 18 156/88 96 05/26/16 20:00 97.5 F L 90 18 146/86 96 Intake and Output 05/27/16 05/27/16 05/27/16 05:59 13:59 21:59 Intake Total 850 / 850 300 / 300 Balance 850 / 850 300 / 300 Intake: IV 500 / 500 Sodium Chloride 0.9% 500 500 / 500 ml @ 333.3 mls/hr IV Q12H KULWINDER with Vancomycin 1, 500 mg Rx#:[id number] Oral 350 / 350 300 / 300 Other: Meal Breakfast Percent of Meal Consumed 100% Weight 212 lb Patient Weight 05/28/16 05:59 Weight 212 lb Intake & Output: Intake & Output 05/27/16 05/27/16 05/27/16 05:59 13:59 21:59 Intake Total 850 / 850 300 / 300 Balance 850 / 850 300 / 300 Weight 212 lb Intake: IV 500 / 500 Sodium Chloride 0.9% 500 500 / 500 ml @ 333.3 mls/hr IV Q12H KULWINDER with Vancomycin 1, 500 mg Rx#:[id number] Oral 350 / 350 300 / 300 Other: Meal Breakfast Percent of Meal Consumed 100% Dressing: Yes clean, Yes dry, Yes intact, Yes splint in place Weight bearing status: full Neurological exam IM: Yes alert, Yes oriented X3, Yes neurovascular intact Extremities exam IM: Yes neurovascular intact - Labs CBC & BMP: 05/27/16 03:59 05/27/16 03:59 Labs: 05/27/16 05/26/16 03:59 04:30 Hgb 13.4 L 14.2 Hct 40.9 L 43.3 Assessment and Plan (1) Septic joint of right hand Status: Acute Priority: High Comment: A: S/P I&D right septic middle finger PIP joint and extensor tendon, doing well P: 1. Continue IV antibiotics as per Hospitalist 2. Up as tolerated 3. Dressing change and drain D/C 05/28/16 4. D/C planning for 05/28/16 Qualifiers: Septic arthritis organism: staphylococcal Qualified Code(s): M00.041 - Staphylococcal arthritis, right hand
[2016-05-28 06:00] LABS: Basophils # (Auto) 0 K/mcL (0.0-0.3); Basophils % (Auto) 0.5 % (0.0-2.0); Eosinophils # (Auto) 0 K/mcL (0.0-0.7); Granulocytes % (Auto) 51.1 % (38.0-78.0); Lymphocytes % (Auto) 41.8 % (15.5-49.0); Mean Cell Volume 101.4 fL (80.0-100.0); Mean Corpuscular HGB Conc 32.7 g/dL (31.0-36.0); Mean Corpuscular Hemoglobin 33.2 pg (26.0-34.0); Monocytes # (Auto) 0.3 K/mcL (0.1-0.9); Monocytes % (Auto) 5.6 % (1.0-9.0); Platelet Count 202 K/mcL (140-440); RBC 4.11 M/mcL (4.50-5.90); Red Cell Distribution Width 14.6 % (11.5-14.5)
[2016-05-28 06:18] LABS: ALT/SGPT 80 U/l (0-40); Albumin 3.8 gm/dL (3.2-5.2); Albumin/Globulin Ratio 1.4 (1.0-2.3); Alkaline Phosphatase 67 U/L (39-117); Bilirubin,Direct < 0.2 mg/dL (0.0-0.3); Blood Urea Nitrogen 15 mg/dl (6-20); C-Reactive Protein 0.9 mg/dl (0.0-0.8); Gamma Glutamyl Transpeptidase 303 U/L (8-61); Phosphorous 4.2 mg/dL (2.7-4.5); Uric Acid 5.4 mg/dL (2.5-8.0)
[2016-05-28 07:03] LABS: Erythrocyte Sedimentation Rate 31 mm/hr (0-15)
[2016-05-28] MEDS: MULTIVIT,THER IRON,CA,FA & MIN 1 TABLET PO SCH (08:37)
[2016-05-28] MEDS: FOLIC ACID 1 MG TABLET PO SCH (08:37)
[2016-05-28] MEDS: HEPARIN 5,000 UNIT/ML VIAL SQ SCH (08:37)
[2016-05-28] MEDS: FAMOTIDINE 20 MG TABLET PO SCH (08:37)
[2016-05-28] MEDS: THIAMINE 100 MG TABLET PO SCH (08:37)
[2016-05-28] MEDS: cefTRIAXone 1 GM in DEXTROSE 5% IN WATER 50 ML IV SCH (08:38)
[2016-05-28] MEDS: 0.9 % SODIUM CHLORIDE 10 ML SYRINGE IV SCH ×4 (09:00→13:37)
[2016-05-28] MEDS: VANCOMYCIN 1,500 MG in 0.9 % SODIUM CHLORIDE 500 ML IV SCH (09:00)
[2016-05-28] MEDS: TRIAMCINOLONE CREAM 0.1% 15G 1 DOSE TUBE TOPICAL SCH (10:12)
[2016-05-28] MEDS: HYDROcodone/APAP 5/325MG TABLET PO PRN ×2 (13:07→18:37)
--- NOTE | 2016-05-28 18:37 | Orthopedic Progress Note ---
Subjective Patient information: Note initiated : 05/28/16 at 6:34 pm Service Date, if different from initiated Date: [] Patient: Eliazar Plasencia 46 y/o M admitted on 05/25/16 for Rt Middle Finger Swelling, Reddness/Septic Joint. Chief Complaint: [] Principal diagnosis: Septic right middle finger Interval history: No changes, good pain control, taking po well, no fevers or chills Objective Vital signs: Vital Signs Temp Pulse Resp BP BP Pulse Ox 05/28/16 16:00 98.1 F 80 18 166/99 96 05/28/16 12:00 98.5 F 84 18 139/90 97 05/28/16 07:53 97.6 F 72 18 151/92 98 05/28/16 04:00 98.3 F 82 18 149/99 97 05/28/16 00:00 98.4 F 72 16 149/96 97 05/27/16 21:30 134/72 05/27/16 20:00 98.5 F 79 16 164/94 98 Intake and Output 05/28/16 05/28/16 05/28/16 05:59 13:59 21:59 Intake Total 800 / 800 360 / 360 Output Total 300 / 300 200 / 200 Balance 500 / 500 -200 / -200 360 / 360 Intake: IV 500 / 500 Sodium Chloride 0.9% 500 500 / 500 ml @ 333.3 mls/hr IV Q12H KULWINDER with Vancomycin 1, 500 mg Rx#:[id number] Oral 300 / 300 360 / 360 Output: Urine Catheter Amount 200 / 200 Void Amount 300 / 300 Other: # Voids 2 1 Intake & Output: Intake & Output 05/28/16 05/28/16 05/28/16 05:59 13:59 21:59 Intake Total 800 / 800 360 / 360 Output Total 300 / 300 200 / 200 Balance 500 / 500 -200 / -200 360 / 360 Intake: IV 500 / 500 Sodium Chloride 0.9% 500 500 / 500 ml @ 333.3 mls/hr IV Q12H KULWINDER with Vancomycin 1, 500 mg Rx#:[id number] Oral 300 / 300 360 / 360 Output: Urine Catheter Amount 200 / 200 Void Amount 300 / 300 Other: # Voids 2 1 Incision: Yes healing, Yes clean and dry Incision clean and dry: Yes (small amount of serous drainage) Dressing: Yes clean, Yes dry, Yes intact, Yes splint in place Weight bearing status: full Neurological exam IM: Yes alert, Yes oriented X3, Yes neurovascular intact Extremities exam IM: Yes normal capillary refill, Yes neurovascular intact - Labs CBC & BMP: 05/28/16 03:30 05/28/16 03:30 Labs: 05/28/16 05/27/16 05/26/16 03:30 03:59 04:30 Hgb 13.6 13.4 L 14.2 Hct 41.7 40.9 L 43.3 Assessment and Plan (1) Septic joint of right hand Status: Acute Priority: High Comment: A: S/P I&D right septic middle finger PIP joint and extensor tendon, doing well P: 1. Dressing change today 2. D/C Drain 3. Continue IV Antibiotics as per Hospitalist 4. D/C to home when cleared by Hospitalist 5. Follow up with [facility] on 06/02/16 Qualifiers: Septic arthritis organism: staphylococcal Qualified Code(s): M00.041 - Staphylococcal arthritis, right hand
--- NOTE | 2016-05-28 19:18 | Discharge Summary ---
Medical - DS: Prov Patient information: Note initiated : 05/28/16 at 7:15 pm Service Date, if different from initiated Date: [] Patient: Eliazar Plasencia 46 y/o M admitted on 05/25/16 for Rt Middle Finger Swelling, Reddness/Septic Joint. Chief Complaint: [] Date of admission: 05/25/16 16:57 Discharge date: 05/28/16 Primary care physician: [Beckie Boateng, nurse practitioner, phone [phone]] Admitting clinician: Stella Campbell Consults: Dr. Lang, ortho Attending physician on discharge: Stella Campbell Medical - DS: Meds - Discharge Medications Prescriptions: HYDROcodone/ACETAMINOPHEN [Lortab 7.5-325 mg Tablet] 1 - 2 tablet PO Q4-6HP PRN #65 tablet PRN Reason: Pain cefTRIAXone [Rocephin] 1 gm IV Q24H #14 vial Active and Home Medications: Home Medications HYDROcodone/ACETAMINOPHEN [Lortab 7.5-325 mg Tablet] 1 - 2 tablet PO Q4-6HP PRN #65 tablet 05/28/16 [Rx Last Taken Unknown] Active Medications Acetaminophen (Tylenol) 650 mg PO Q6HP PRN PRN Reason: PAIN/FEVER > 101 Last Admin: 05/26/16 06:45 Dose: 650 mg Acetaminophen/Hydrocodone Bitart ([place] 5/325mg) 1 tab PO Q4HP PRN PRN Reason: Pain Last Admin: 05/28/16 18:37 Dose: 1 tab Clonidine HCl (Catapres) 0.1 mg PO Q4HP PRN PRN Reason: Alcohol Withdrawal Last Admin: 05/27/16 17:51 Dose: 0.1 mg Docusate Sodium (Colace) 100 mg PO BID PRN PRN Reason: Constipation Last Admin: 05/27/16 21:36 Dose: 100 mg Famotidine (Pepcid) 20 mg PO BID [facility] Last Admin: 05/28/16 08:37 Dose: 20 mg Folic Acid (Folic Acid) 1 mg PO DAILY [facility] Last Admin: 05/28/16 08:37 Dose: 1 mg Heparin Sodium (Porcine) (Heparin) 5,000 unit SQ Q12 KULWINDER Last Admin: 05/28/16 08:37 Dose: 5,000 unit Heparin Sodium (Porcine) (Heparin Flush) 2 ml IV Q12 [facility] Last Admin: 05/28/16 08:37 Dose: 2 ml Hydromorphone HCl (Dilaudid) 0 mg IV Q2HP PRN PRN Reason: Pain Ceftriaxone Sodium 1 gm/ (Dextrose) 50 mls @ 100 mls/hr IV Q24H [facility] Last Admin: 05/28/16 08:38 Dose: 100 mls/hr Vancomycin HCl 1,500 mg/ (Sodium Chloride) 500 mls @ 333.3 mls/hr IV Q12H [facility] Last Admin: 05/28/16 09:00 Dose: 333 mls/hr Iron Carb/Multivit/Corrugator Helper/Folic Acid (Multivitamin W/Minerals) 1 tab PO DAILY [facility] Last Admin: 05/28/16 08:37 Dose: 1 tab Lorazepam (Ativan) 1 mg IV Q4HP PRN; Protocol PRN Reason: Alcohol Withdrawal Last Admin: 05/27/16 06:17 Dose: 1 mg Magnesium Hydroxide (Milk Of Magnesia) 30 ml PO DAILYP PRN PRN Reason: Constipation Naloxone HCl (Narcan) 0.1 mg IV Q2MIN PRN PRN Reason: Opiate Reversal Ondansetron HCl (Zofran) 4 mg SL Q4HP PRN PRN Reason: Nausea And Vomiting Sodium Chloride (Saline Flush) 10 ml IV Q8 [facility] Last Admin: 05/28/16 13:07 Dose: 10 ml Sodium Chloride (Saline Flush) 10 ml IV Q8 [facility] Last Admin: 05/28/16 13:37 Dose: Not Given Thiamine HCl (Vitamin B1) 100 mg PO QDAY [facility] Last Admin: 05/28/16 08:37 Dose: 100 mg Throat Lozenges (Cepacol) 1 lozenge PO PRN PRN PRN Reason: Sore Throat Triamcinolone Acetonide (Kenalog Cream 0.1%) 1 dose TOPICAL BID [facility] Last Admin: 05/28/16 10:12 Dose: Not Given Medical - DS: Hosp Hospital course: Mr. Plasencia is a 46 year old male May 25, 2016:History of present illness: Mr. Plasencia is a 46 year old male presented to the emergency room complaining of progressive worsening of swelling and pain of his right middle finger, dorsal surface. He apparently had been working on a car about one week ago and the alternator belts caused an abrasion. he was diagnosed with possible septic arthritis, and Dr. Lang of orthopedics saw him in the emergency room, and subsequently took him to the emergency room for open debridement. he is now being admitted for IV antibiotics regarding septic joint. His last tetanus shot was reported as approximately 7 years ago, so Tdap vaccine was given in the emergency room.. May 26, 2016: Today, the patient says he is feeling pretty well. He did have some agitation last night, but this was settled down nicely by Ativan. Otherwise, he states he's having a little bit more discomfort in his right hand today, but really not much. He denies any tremors or other signs of alcohol withdrawal today. He is not having fever or chills, chest pain or shortness of breath, abdominal pain, nausea or vomiting.he says the triamcinolone cream does seem to be helping with the itching of his shins at night. May 27, 2016: the patient has no particular complaints today, other than that he is feeling somewhat sleepy. He still uses Ativan occasionally for increases in anxiety but has otherwise not had significant withdrawal symptoms. He denies fever or chills, or excessive pain in his right hand. He denies chest pain or shortness of breath GI or symptoms. May 28, 2016: - The patient has been doing fine. He denies any further symptoms of alcohol withdrawal, such as anxiety or tremors. He is encouraged to stop drinking alcohol altogether, as he has essentially detoxed released here. he feels that his hand is doing fine, and has only minor discomfort. -Dr. Watkins has examined his hand and changed his dressing today, and feels that he is ready for discharge. We will keep the patient on IV Rocephin for 14 days. His Intra-Op cultures grew only a pansensitive staph, which should be susceptible. the patient will follow-up with Dr. Lang in clinic in about 1 week, and after 2 weeks of IV antibiotics Dr. Lang will decide about further antibiotics. plan: #1. Infectious disease/orthopedics. - the patient is status post I&D he right middle finger abscess and suppurative extensor tenosynovitis with septic PIP joint. He will need IV antibiotics for at least 2 weeks -sensitivities on the staph aureus showed as a pansensitive organism. There is a second gram-positive organism that is read out as staph. The only sensitivities I see, is a pansensitive spectrum. -Continue 2 weeks of IV Rocephin. I think given the sensitivity of the organism , he does not need to continue with vancomycin. -Tdap vaccine was updated #2. history of heavy alcohol use. The patient is at high risk for withdrawal, and was placed on the CIWA protocol. He has required a couple of doses of lorazepam, but otherwise appears to be doing well. #3. History of tobacco abuse. This is fairly minimal, and should not require treatment. -he should avoid smoking altogether, but at least while healing his wound. #4.CODE STATUS: Full code. #5. DVT prophylaxis: Subcutaneous heparin. #6. Elevated blood pressure. He does not believe that he has a history of this .This may be related to the current stressful situation or due to alcohol withdrawal. We will continue to monitor this. this continues to run rather high, and should be followed up with his primary care physician. #8.gI. - Abdominal discomfort, and likely GERD with or without gastritis due to chronic alcohol use. Cover with oral Pepcid. -LFTs were also elevated on admission, likely due to alcoholic hepatitis these are improving. #9. He does have numerous tiny scabs noted over both shins, which he and his girlfriend report is due to chronic itching.this is improving with topical steroids. #10. Hematologic. -MCV is elevated, likely due to the effect of alcohol on his bone marrow. continue with supplementation of B vitamins. #11. Endocrine. -Glucose was elevated, but is improved today. - Time Spent with Patient Total time spent providing and/or coordinating discharge services: Greater than 30 minutes (was spent today reviewing patient's test results, interviewing and examining him, discussing plan of care with he and his girlfriend, as well as with Dr. Watkins and nursing staff.) Medical - DS: Exam - Constitutional Vitals: Vital Signs Temp Pulse Resp BP BP Pulse Ox 05/28/16 18:39 97.8 F 78 20 150/103 96 05/28/16 16:00 98.1 F 80 18 166/99 96 05/28/16 12:00 98.5 F 84 18 139/90 97 05/28/16 07:53 97.6 F 72 18 151/92 98 05/28/16 04:00 98.3 F 82 18 149/99 97 05/28/16 00:00 98.4 F 72 16 149/96 97 05/27/16 21:30 134/72 05/27/16 20:00 98.5 F 79 16 164/94 98 Intake and Output 05/28/16 05/28/16 05/28/16 05:59 13:59 21:59 Intake Total 800 / 800 360 / 360 Output Total 300 / 300 200 / 200 Balance 500 / 500 -200 / -200 360 / 360 Intake: IV 500 / 500 Sodium Chloride 0.9% 500 500 / 500 ml @ 333.3 mls/hr IV Q12H KULWINDER with Vancomycin 1, 500 mg Rx#:[id number] Oral 300 / 300 360 / 360 Output: Urine Catheter Amount 200 / 200 Void Amount 300 / 300 Other: # Voids 2 1 Weight 215 lb 4.8 oz Patient Weight 05/29/16 05:59 Weight 215 lb 4.8 oz Additional comments: he is awake and alert, and in no acute distress. Cardiac exam shows regular rate and rhythm. Lungs are clear to auscultation. Abdomen is soft and nontender. extremities:Right hand and forearm are bandaged. Fingers show good vascular refill. Lower extremities show no edema. The rash on his terrell is improving. Medical - DS: Data Labs on day of discharge: Labs from last 24 hours 05/28/16 05/28/16 03:30 03:30 WBC 4.7 RBC 4.11 L Hgb 13.6 Hct 41.7 MCV 101.4 H MCH 33.2 MCHC 32.7 RDW 14.6 H Plt Count 202 MPV 7.7 Gran % 51.1 Lymph % (Auto) 41.8 Prentiss % (Auto) 5.6 Eos % (Auto) 1.0 Baso % (Auto) 0.5 Gran # 2.4 Lymph # 2.0 Prentiss # 0.3 Eos # 0 Baso # 0 ESR 31 H Sodium 139 Potassium 4.1 Chloride 102 Carbon Dioxide 25 Anion Gap 12.0 BUN 15 Creatinine 0.8 GFR Calculation 106 Glucose 88 Uric Acid 5.4 Calcium 8.8 Phosphorus 4.2 Magnesium 2.0 Total Bilirubin 0.4 Direct Bilirubin < 0.2 GGT 303 H AST 115 H ALT 80 H Alkaline Phosphatase 67 Lactate Dehydrogenase 226 C-Reactive Protein 0.9 H Total Protein 6.5 Albumin 3.8 Globulin 2.7 Albumin/Globulin Ratio 1.4 Triglycerides 160 H Preliminary micro results at discharge 05/25/16 18:37 Blood Culture - Preliminary Blood 05/25/16 18:42 Blood Culture - Preliminary Blood wound cultureis growing staph aureus and gram-positive cocci. Staph aureus is pansensitive. second gram-positive cocci organism ID is still pending. Medical - DS: A/P - Patient/Caregiver Discharge Instructions Activity: increase activity as tolerated Diet: Low Sodium (2gm) Additional Instructions: per orthopedics: 1. Dressing change today 2. D/C Drain 3. Continue IV Antibiotics as per Hospitalist (For 2 weeks) 4. D/C to home 5. Follow up with [facility] on 06/02/16 Prescriptions: HYDROcodone/ACETAMINOPHEN [Lortab 7.5-325 mg Tablet] 1 - 2 tablet PO Q4-6HP PRN #65 tablet PRN Reason: Pain - Problem Maintenance (1) Alcohol abuse Status: Chronic (2) Tobacco abuse Status: Chronic (3) Rash and nonspecific skin eruption Status: Chronic (4) Septic joint of right hand Status: Acute Comment: A: S/P I&D right septic middle finger PIP joint and extensor tendon, doing well P: 1. Dressing change today 2. D/C Drain 3. Continue IV Antibiotics as per Hospitalist 4. D/C to home when cleared by Hospitalist 5. Follow up with [facility] on 06/02/16 Qualifiers: Septic arthritis organism: staphylococcal Qualified Code(s): M00.041 - Staphylococcal arthritis, right hand (5) Dyspepsia Status: Acute - Follow up Plan Follow up with: Xiomy Boateng ARNP [Primary Care Provider] - Disposition: Home, Self-Care Prognosis: Good Rehab Potential: Good I certify that the patient requires SNF services: No Overall status at discharge: patient is progressing back to baseline Medical - DS: Qual - VTE Deep Vein Thrombosis/Pulmonary Embolism Present on Admission: No
== END 2016-05-28 20:04 | disposition home or self-care (01) | DRG 988 ==
LOC: ED-MC 11:24 → SUR 15:24 → MEDSUR 16:57
PROVIDERS: ADMIT Orthopaedic Surgery Hand Surgery; ATTEND Orthopaedic Surgery Hand Surgery